=== PATIENT | female | born 1950 | race Caucasian/White ===

== ENCOUNTER → 2020-12-04 13:09 | Outpatient (CLI) | payer MEDICARE, OTHER, SELFPAY ==
[2020-12-04 21:34] LABS: COVID19 - ORCAS (NP or Nasal) Negative (Negative)
== END ==
PROVIDERS: Referring Provider Family Medicine; Visit Provider Family Medicine
DX: Z20.822 Contact with and (suspected) exposure to COVID-19 (principal); R05 Cough
CPT/HCPCS: C9803; U0003

== ENCOUNTER → 2021-06-06 08:11 | Outpatient (CLI) | payer MEDICARE, OTHER, SELFPAY ==
[2021-06-06 20:57] LABS: COVID19 - ORCAS (NP or Nasal) Negative (Negative)
== END ==
PROVIDERS: Visit Provider Physician Assistant
DX: U07.1 COVID-19 (principal)
CPT/HCPCS: U0003